=== PATIENT | female | born 1965 | race Caucasian/White ===

== ENCOUNTER 2022-03-15 15:39 | Emergency (ER) | payer BC ==
[2022-03-15] MEDS ORDERED: LIDOCAINE/EPINEPHR/TETRACAINE 5 ML BOTTLE TOPICAL ONE (15:51)
[2022-03-15] MEDS ORDERED: HYDROmorphone 1 MG/ML 1 ML SYRINGE IM STA (15:51)
[2022-03-15] MEDS ORDERED: ONDANSETRON ODT 4 MG TAB PO STA (15:51)
--- NOTE | 2022-03-15 15:55 | ED ---
Fall HPI - General Chief Complaint: Fall Stated Complaint: Fall-R shoulder pain Time Seen by Provider: 03/15/22 15:44 Source: patient, RN notes reviewed Mode of arrival: wheelchair Limitations: no limitations - History of Present Illness Initial Comments: This a 56-year-old female presents emergency Department chief complaint of fall. Patient states she tripped over a baby gate she has a puppy. Patient states that she fell striking her head on a chair causing a laceration her tetanus is up-to-date. Patient states it no loss conscious. There is very mild headache. She complains of severe right shoulder pain. She states she felt some popping she is unable to move her right arm secondary to pain. No paresthesias. Denies any chest pain or back pain or lower extremity injury. - Related Data Previous Rx's Medication Instructions Recorded HYDROcodone/APAP 7.5-325MG [[place] 1 tab PO Q6HR PRN 3 Days #12 tab 03/15/22 7.5-325] Allergies Allergy/AdvReac Type Severity Reaction Status Date / Time No Known Allergies Allergy Verified 03/15/22 15:45 Review of Systems ROS Statement: Those systems with pertinent positive or pertinent negative responses have been documented in the HPI. ROS Other: All systems not noted in ROS Statement are negative. Past Medical History Past Medical History: No Reported History History of Any Multi-Drug Resistant Organisms: None Reported Past Surgical History: No Surgical Hx Reported Past Psychological History: No Psychological Hx Reported Smoking Status: Never smoker Past Alcohol Use History: None Reported Past Drug Use History: None Reported General Exam Limitations: no limitations General appearance: alert, in no apparent distress Head exam: Present: atraumatic, normocephalic, normal inspection Eye exam: Present: normal appearance, PERRL, EOMI. Absent: scleral icterus, conjunctival injection, periorbital swelling ENT exam: Present: normal exam, normal oropharynx, mucous membranes moist Neck exam: Present: normal inspection, full ROM. Absent: tenderness, meningismus, lymphadenopathy Respiratory exam: Present: normal lung sounds bilaterally. Absent: respiratory distress, wheezes, rales, rhonchi, stridor Cardiovascular Exam: Present: regular rate, normal rhythm, normal heart sounds. Absent: systolic murmur, diastolic murmur, rubs, gallop, clicks Extremities exam: Present: other (Right shoulder there is diffuse tenderness, no iris deformity neurovascular intact, no elbow tenderness limited range of motion right shoulder) Back exam: Present: full ROM. Absent: tenderness, paraspinal tenderness, vertebral tenderness Neurological exam: Present: alert, oriented X3, CN II-XII intact, reflexes normal. Absent: motor sensory deficit Skin exam: Present: warm, dry, intact, normal color. Absent: rash Course Vital Signs 03/15/22 15:43 Temperature 97.6 F Pulse Rate 55 L Respiratory 20 Rate Blood Pressure 113/75 O2 Sat by Pulse 97 Oximetry Procedures - Laceration Laceration #1 Indication: laceration Site: face Size (cm): 3 Description: linear Depth: simple, single layer Anesthetic Used: lidocaine 1%, without epi (LET soln) Pre-repair: wound explored, irrigated extensively, deep structures intact Type of Sutures: other (exofin dermal adhesive) Patient Tolerated Procedure: well, no complications Medical Decision Making - Medical Decision Making Laceration was cleaned, closed using dermal adhesive. Patient x-ray shows comminuted proximal humerus fracture. I discussed the case with Dr. Dias recommends patient be placed in a shoulder immobilizer. Patient be referred pain control be discharged with pain control. She is advised ice, wear shoulder immobilizer and follow-up on Wednesday. Patient unable to complete CT secondary to shoulder states that she feels fine understands risk and to return if symptoms worsen. Disposition Clinical Impression: Fall, Closed fracture of right proximal humerus, Forehead laceration Disposition: HOME SELF-CARE Condition: Stable Instructions (If sedation given, give patient instructions): Proximal Humerus Fracture (ED) Additional Instructions: Please return to the Emergency Department if symptoms worsen or any other concerns. Prescriptions: HYDROcodone/APAP 7.5-325MG [[place] 7.5-325] 1 tab PO Q6HR PRN 3 Days #12 tab PRN Reason: pain Is patient prescribed a controlled substance at d/c from ED?: Yes When asked, does pt state using other controlled substances?: No If prescribed controlled substance>3 days was MAPS reviewed?: Prescribed <3 Days If opioid is for acute pain is fill amount 7 days or less?: Yes If Rx opioid, was Start Talking consent form obtained?: Yes Referrals: Mundo Ball MD [Primary Care Provider] - 1-2 days Amanda Dias DO [Doctor of Osteopathic Medicine] - 1-2 days Time of Disposition: 16:30
[2022-03-15] MEDS ORDERED: TOPICAL SKIN ADHESIVE 1 EACH AMP TOPICAL ONE (15:57)
[2022-03-15] MEDS ORDERED: HYDROcodone/APAP 7.5-325MG 1 EACH TAB PO ONE (16:31)
--- NOTE | 2022-03-15 16:34 | XR ---
EXAMINATION TYPE: XR shoulder complete RT DATE OF EXAM: 03/15/2022 COMPARISON: NONE HISTORY: Pain TECHNIQUE: 3 views FINDINGS: There is comminuted humeral neck fracture. There is no dislocation. There is separation of the fragments up to 11 mm. The scapula is intact. AC joint is intact. IMPRESSION: Comminuted humeral neck fracture without dislocation. Mild impaction.
[2022-03-15 16:52] VITALS: BP 118/70; PULSE 62; RESP 17; TEMP 98
== END 2022-03-15 16:49 | disposition home or self-care (01) ==
LOC: EC 15:39
DX: S42.201A Unspecified fracture of upper end of right humerus, initial encounter for closed fracture (principal); S01.81XA Laceration without foreign body of other part of head, initial encounter; W01.10XA Fall on same level from slipping, tripping and stumbling with subsequent striking against unspecified object, initial encounter
CPT/HCPCS: 99284; 96372; 12013; 73030; J1170